=== PATIENT | male | born 1950 | race Caucasian/White ===

== ENCOUNTER → 2017-08-30 | Outpatient (CLI) | payer MEDICARE ==
[~2017-08-30] MED LIST: REGADENOSON 0.4 MG/5 ML SYRINGE IV ONE
--- NOTE | 2017-08-30 10:55 | NM ---
EXAMINATION TYPE: NM stress lexiscan cardiolite DATE OF EXAM: 08/30/2017 COMPARISON: NONE HISTORY: Abnormal EKG and chest pain TECHNIQUE: After the intravenous administration of 10.4 mCi Tc 99m Sestamibi - Cardiolite resting SP ECT images acquired 45 minutes post injection. The patient received 0.4mg Lexiscan, 26.7 mCi Tc 99m Sestamibi - Stress images obtained [address] injection FINDINGS: Review of stress and rest SPECT images demonstrates no distinct perfusion abnormality. Gated analysi s shows stress-induced reversible ischemia involving the apical and apical septal portion myocardium. With an estimated left ventricular ejection fraction of 60 %. Referring physician notified by teleph one. IMPRESSION: 1. Stress-induced reversible ischemia involving the apex of the myocardium 2. Ejection fraction of 60% A [place] level critical message alert has been initiated for Herb Reilly MD via the [employer] Critical Results System on 08/30/2017 10:53 AM. This message alert has been sent to Herb Reilly MD via the preferences provided by the clinician for the receipt of Radiology Critical Findings. Message ID [id number].
--- NOTE | 2017-08-30 14:02 | EST ---
EXERCISE STRESS AGE: 67 SEX: M HT: 75" WT: 238 PROTOCOL: Lexiscan Cardiolite Stress Test HEART RATE REST: 65 BLOOD PRESSURE REST: 174/77 MAXIMUM HEART RATE ACHIEVED: 84 MAXIMUM BLOOD PRESSURE: 174/77 85% MPHR: 128 100% MPHR: 151 INDICATIONS: Difficulty breathing, chest pain. CLINICAL INFORMATION: STRESS DATA: Pretesting physical examination showed a heart rate of 65, pressure is 174/77 mmHg. Baseline EKG showed sinus mechanism with RBBB. A 0.4 mg of Lexiscan was given to the patient per protocol. Max heart rate was 84 beats per minute and maximum pressure was 174/77 mmHg. Clinically, no chest discomfort reported and the EKG did not show any significant ST or T-wave abnormalities consistent with ischemia. CONCLUSION: 1. Nondiagnostic electrocardiogram stress testing in response to Lexiscan. 2. Please follow up on the Cardiolite portion on separate report from the Radiology Department. MMODL / IJN: [id number] /
== END | disposition home or self-care (01) ==
LOC: RADNMMAIN 07:56
PROVIDERS: ATTEND Internal Medicine
DX: R07.9 Chest pain, unspecified (principal); R94.31 Abnormal electrocardiogram [ECG] [EKG]
CPT/HCPCS: 93017; 78452; A9500

== ENCOUNTER 2017-09-10 07:44 | Day surgery (SDC) | payer MEDICARE ==
[2017-09-06 11:40] VITALS: BMI 29.6
[~2017-09-10 07:44] MED LIST changes: +ALPRAZolam 0.25 MG TAB PO PRN; +ALPRAZolam 0.5 MG TAB PO PRN; +ASPIRIN 325 MG TAB PO STA; +ATORVASTATIN 80 MG TAB PO STA; +NITROGLYCERIN SL TABS 0.4 MG TAB SUBLINGUAL PRN; -REGADENOSON 0.4 MG/5 ML SYRINGE IV ONE; +SODIUM CHLORIDE 0.9% 1,000 ML in EMPTY BAG 1 BAG IV ONE
[2017-09-10 08:55] LABS: Glucose,Whole Blood 221 mg/dL (75-99)
[2017-09-10] MEDS: INSULIN ASPART 100 UNIT/ML 1 ML 10 ML VIAL SQ SCH ×3 (09:01→21:09)
[2017-09-10 09:15] LABS: Basophils % (A) 1 %; Eosinophils # (A) 0.3 k/uL (0-0.7); Eosinophils % (A) 3 %; HCT 38.9 % (39.0-53.0); HGB 13.2 gm/dL (13.0-17.5); Lymphocytes # (A) 1.4 k/uL (1.0-4.8); Lymphocytes % (A) 17 %; MCH 31.3 pg (25.0-35.0); MCHC 33.9 g/dL (31.0-37.0); MCV 92.5 fL (80.0-100.0); Mean Platelet Volume 7.6; Monocytes # (A) 0.5 k/uL (0-1.0); Monocytes % (A) 6 %; Neutrophils # (A) 5.6 k/uL (1.3-7.7); Neutrophils % (A) 71 %; Platelet Count 236 k/uL (150-450); RBC 4.21 m/uL (4.30-5.90); RDW 12.5 % (11.5-15.5); WBC 7.8 k/uL (3.8-10.6)
[2017-09-10 09:21] LABS: Anion Gap 14 mmol/L; Blood Urea Nitrogen 18 mg/dL (9-20); Calcium 9.3 mg/dL (8.4-10.2); Carbon Dioxide 23 mmol/L (22-30); Chloride 105 mmol/L (98-107); Glucose 225 mg/dL (74-99); Potassium 4.8 mmol/L (3.5-5.1); Sodium 142 mmol/L (137-145)
[2017-09-10] MEDS ORDERED: VERAPAMIL 2.5 MG/ML 2 ML AMP ONE (09:54)
[2017-09-10] MEDS ORDERED: LIDOCAINE 2% INJ 20 MG/ML (20 ML MDV) ONE (09:54)
[2017-09-10] MEDS ORDERED: fentaNYL (PF) 50 MCG/ML 2 ML AMP ONE (10:12)
[2017-09-10] MEDS ORDERED: fentaNYL (PF) 50 MCG/ML 2 ML AMP IV ONE (10:13)
[2017-09-10] MEDS ORDERED: LIDOCAINE 2% INJ 20 MG/ML SQ ONE (10:17)
[2017-09-10] MEDS: VERAPAMIL SYRINGE (5 MG/10 ML) INTRAARTER ONE ×2 (10:19→10:46)
[2017-09-10] MEDS ORDERED: BIVALIRUDIN 250 MG in SODIUM CHLORIDE 0.9% 50 ML IV ONE (10:31)
[2017-09-10] MEDS ORDERED: BIVALIRUDIN BOLUS 250 MG/50 ML IV ONE (10:31)
[2017-09-10] MEDS ORDERED: TICAGRELOR 90 MG TAB ONE (10:37)
[2017-09-10] MEDS ORDERED: TICAGRELOR 90 MG TAB PO ONE (10:39)
[2017-09-10] MEDS: NITROGLYCERIN 1000MCG/10ML SYRINGE INTRACORON ONE ×2 (10:50→10:51)
[2017-09-10] MEDS ORDERED: IOPAMIDOL-370 50ML BTL INJ ONE (10:56)
[2017-09-10] MEDS ORDERED: IOPAMIDOL-370 125ML BTL INJ ONE (10:56)
[2017-09-10] MEDS ORDERED: NITROGLYCERIN 1000MCG/10ML SYRINGE INTRACORON ONE (11:01)
[2017-09-10] MEDS ORDERED: IOPAMIDOL-370 100ML BTL INJ ONE (11:16)
[2017-09-10] MEDS ORDERED: MAG HYDROX/AL HYDROX/SIMETH 30 ML CUP PO PRN (11:37)
[2017-09-10] MEDS ORDERED: RX INFO: IV CONTRAST WAS GIVEN 1 EACH MISC MISCELLANE PRN (11:37)
[2017-09-10] MEDS ORDERED: ATROPINE SULFATE 0.1 MG/ML 10ML SYRINGE IV PRN (11:37)
[2017-09-10] MEDS ORDERED: NITROGLYCERIN SL TABS 0.4 MG TAB SUBLINGUAL PRN (11:37)
[2017-09-10] MEDS ORDERED: SODIUM CHLORIDE 0.9% 1,000 ML IV SCH (11:45)
--- NOTE | 2017-09-10 11:52 | CC ---
CARDIAC CATHETERIZATION REPORT Mr. Vargas is a 67-year-old male with known history of diabetes, hypertension, who has been complaining of progressive symptoms of angina pectoris and dyspnea on exertion, underwent a myocardial perfusion imaging that revealed apical ischemia. In view of that, recommendation regarding cardiac catheterization. The procedures as well as risks and complication were discussed with the patient who is in full understanding and agreement. PROCEDURE: Patient was brought to the lab[employer] plant in a fasting state after receiving fentanyl and Benadryl and achieving moderate conscious sedated state. Using Xylocaine anesthesia and Seldinger technique, a 6-Guyanese sheath was introduced in the right radial artery. Selective right and left coronary angiography performed using 5-Guyanese 3 and half bend, right and left Monique catheters, multiple views of the coronary artery including hemiaxial views were obtained. Following that, a 5-Guyanese tight pigtail catheter was introduced into the left ventricle and a 30 degree BHATIA view of the left ventricle was obtained. Following that, the catheter was removed. Images were reviewed. FINDINGS: Left Main: This is a large-sized vessel trifurcation into left circumflex, left anterior descending artery and ramus intermedius. Left main coronary artery has no evidence of high-grade stenosis. Left Anterior Descending Artery: This vessel is totally occluded proximally with no significant antegrade flow. There are collaterals to the distal LAD with the retrograde fashion and the ipsilateral fashion as well as from the right PDA. Ramus Intermedius: This is a large-sized vessel reaching to the apical lateral wall that has no evidence of high-grade stenosis. Left Circumflex: This is a nondominant large vessel giving rise to a large obtuse marginal branch. The left circumflex as well as branches have no evidence of obstructive coronary disease. Right Coronary Artery: This is a large dominant vessel bifurcating distally to PDA and posterolateral segment and branches. The right coronary artery and its branches have no evidence of obstructive coronary disease. Left Ventriculogram: Left ventriculogram is performed in 30 degree BHATIA view and revealed a normal left ventricular size with mild anterior wall hypokinesis. The estimated ejection fraction of 50%. There was no significant mitral regurgitation. HEMODYNAMICS: There was no gradient across the aortic valve. The left ventricle end-diastolic pressure was 16-20 mmHg. CONCLUSION: 1. 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 2. Mildly impaired left ventricular systolic function. RECOMMENDATION: In view of finding anatomy, I have recommended proceeding with angioplasty and stenting of the proximal LAD. The procedures as well as risks and complication were discussed with the patient who was in full understanding and agreement. MMKEN / ANGEL: [id number] / ZAC
[2017-09-10] MEDS: glipiZIDE 5 MG TAB PO SCH ×2 (12:11→17:04)
--- NOTE | 2017-09-10 12:31 | PTCA ---
PERCUTANEOUSTRANS CORORONARY ANGIOGRAPHY Ms. Vargas is a 67-year-old male with known history of hypertension, hyperlipidemia, diabetes mellitus, who presented with progressive symptoms of angina pectoris, underwent a myocardial perfusion imaging that revealed apical wall ischemia, underwent cardiac catheterization, was found totally occluded proximal LAD. In view of that, recommendation was made regarding angioplasty and stenting. The procedure as well as the risks and the complications were discussed with the patient who is in full understanding and agreement. PROCEDURE: A 6-Yi EBU 3.75 guiding catheter introduced in the the system after cannulating the left main, a 0.014 balanced medium weight J-wire with Corsair catheter was introduced system and a total occlusion was crossed. A wire was positioned distally. The Corsair catheter was removed and a 2.25 x 12 mm Trek balloon was advanced and 2 inflation at maximum of 8 atmospheres were done. Following that, the balloon was was removed and a 2.5 x 28 mm Xience Alpine stent was deployed proximally, post dilated at 14 atmospheres. Following that, the balloon was removed and another 2.5 x 14 mm Xience Alpine stent was deployed distal to the first one and post dilated at 14 atmospheres. Following that, an inflation in the overlapping segment at 16 atmospheres was done. After the last inflation, after appropriate wait, the balloon and the guidewire were withdrawn back in the guiding catheter. Images were obtained and repeated. Those images reveal stable successful stenting. At that point, the guiding catheter, the balloon and the guidewire were removed. The sheath was removed. Hemostasis was obtained with deployment of a TR band. There was no immediate complication. Patient was returned to his room in stable condition. Of note, the patient received Angiomax per protocol as well as oral loading dose of Brilinta. He also received intra-arterial verapamil. He had no chest discomfort or significant EKG changes with the inflations. RESULTS: Successful stenting of a totally occluded proximal left anterior descending artery with reduction in stenosis from 100% to 0%. RECOMMENDATION: Patient will be continued on aspirin, Brilinta, beta blockers, DONALD inhibitor, statin. The importance of dual antiplatelet treatment were discussed with the patient and his family who are in full understanding and agreement. MMODL / IJN: [id number] / ZAC
--- NOTE | 2017-09-10 12:37 | LTR ---
September 10, 2017 Re: Jeremy Vargas Dear Dr. Reilly: I had the opportunity to perform cardiac catheterization and coronary angioplasty and stenting on Mr. Vargas at [facility] and a full copy of the procedure note will be forwarded to you. In brief, he was found to have a totally occluded proximal left anterior descending artery and underwent successful stenting of that vessel using 2 drug-eluting stents. I am hopeful that this procedure will stabilize his status and I thank you again for allowing me the opportunity to participate in his care. Please feel free to call for any questions. Sincerely yours, MD HOLLI BradyL / TONYN: [id number] /
[2017-09-10 16:40] LABS: Glucose,Whole Blood 284 mg/dL (75-99)
[2017-09-10] MEDS: CARVEDILOL 12.5 MG TAB PO SCH (17:04)
[2017-09-10] MEDS: TICAGRELOR 90 MG TAB PO SCH (19:34)
[2017-09-10 20:58] LABS: Glucose,Whole Blood 236 mg/dL (75-99)
[2017-09-10] MEDS ORDERED: ATORVASTATIN 80 MG TAB PO SCH (21:00)
[2017-09-10] MEDS ORDERED: ZOLPIDEM 5 MG TAB PO PRN (21:00)
[2017-09-11 05:54] LABS: Glucose,Whole Blood 209 mg/dL (75-99)
[2017-09-11] MEDS: CARVEDILOL 12.5 MG TAB PO SCH (06:38)
[2017-09-11] MEDS: glipiZIDE 5 MG TAB PO SCH (06:38)
[2017-09-11] MEDS: INSULIN ASPART 100 UNIT/ML 1 ML 10 ML VIAL SQ SCH (06:38)
[2017-09-11 06:46] LABS: Calcium 9.3 mg/dL (8.4-10.2); Potassium 4.6 mmol/L (3.5-5.1)
[2017-09-11 08:20] VITALS: BP 128/61; PULSE 52; RESP 18; TEMP 96.4
[2017-09-11] MEDS: TICAGRELOR 90 MG TAB PO SCH (08:21)
--- NOTE | 2017-09-11 08:29 | PN ---
PROGRESS NOTE Mr. Vargas is a 67-year-old male with known history of hypertension, hyperlipidemia, diabetes mellitus, who presented with symptoms of angina pectoris and abnormal myocardial perfusion imaging was found to have a totally occluded proximal LAD, underwent stenting of that vessel. He is doing well this morning. His breathing has been stable. He is denying any dizziness. No palpitation. He denies any nausea. He has been ambulating. He continued to be on aspirin once a day, Lipitor 80 mg daily, Coreg 12.5 mg twice a day, glipizide 5 mg 3 times a day, Tradjenta 5 mg daily, losartan 100 mg daily, and Brilinta 90 mg twice a day. PHYSICAL EXAMINATION: Blood pressure 106/60 with the heart rate in the 50s. LUNGS: Clear. HEART: Regular rate and rhythm. S1, S2. No S3. No rub. ABDOMEN: Soft, nontender. EXTREMITIES: No edema. Right radial pulse is intact. EKG no acute changes. LAB DATA: Lab data revealed BUN and creatinine 14 and 1.0. Potassium 4.6. IMPRESSION: 1. Status post stenting of a totally occluded left anterior descending artery. 2. Hypertension. 3. Hyperlipidemia. 4. Diabetes mellitus. RECOMMENDATION: Patient will be discharged home today and followed as an outpatient. MMODL / IJN: [id number] /
[2017-09-11] MEDS ORDERED: LINAGLIPTIN 5 MG TABLET PO SCH (09:00)
[2017-09-11] MEDS ORDERED: CHOLECALCIFEROL 1,000 UNIT TAB PO SCH (09:00)
[2017-09-11] MEDS ORDERED: ASPIRIN 81 MG PO SCH (09:00)
[2017-09-11] MEDS ORDERED: LOSARTAN 50 MG TAB PO SCH (09:00)
== END 2017-09-11 09:32 | disposition home or self-care (01) ==
LOC: CATHCVL 07:44 → 6SEL 11:10 → CATHCVL 09-11 09:32
PROVIDERS: ATTEND Internal Medicine Interventional Cardiology
DX: I25.110 Atherosclerotic heart disease of native coronary artery with unstable angina pectoris (principal); I25.82 Chronic total occlusion of coronary artery; R00.1 Bradycardia, unspecified; I45.10 Unspecified right bundle-branch block; R94.39 Abnormal result of other cardiovascular function study; I10 Essential (primary) hypertension; E78.2 Mixed hyperlipidemia; E11.9 Type 2 diabetes mellitus without complications; Z82.49 Family history of ischemic heart disease and other diseases of the circulatory system; Z79.84 Long term (current) use of oral hypoglycemic drugs; Z79.82 Long term (current) use of aspirin; Z79.899 Other long term (current) drug therapy
CPT/HCPCS: 93458; 80048 ×2; 85025; C9600; C1769 ×2; C1887 ×2; C1894; C1725; C1874; J2001; J3010; J0583; Q9967 ×3

== ENCOUNTER 2021-05-04 15:11 | Emergency (ER) | payer MEDICARE ==
[2021-05-04 15:34] VITALS: RESP 18; TEMP 98.4
--- NOTE | 2021-05-04 16:14 | ED ---
URI HPI - General Chief Complaint: Upper Respiratory Infection Stated Complaint: Covid+,wants antibody Time Seen by Provider: 05/04/21 15:51 Source: patient, RN notes reviewed Mode of arrival: ambulatory Limitations: no limitations - History of Present Illness Initial Comments: This is a 71-year-old male presents emergency Department chief complaint of C OVID-19. Patient states to suppository today is PCPs. Symptoms have been present for last several days. Patient states she's had fevers chills cough congestion generalized weakness no exertional dyspnea no resting dyspnea now. Patient's had no GI symptoms no change in taste and smell. - Related Data Home Medications Medication Instructions Recorded Confirmed Aspirin [Adult Low Dose Aspirin EC] 81 mg PO QAM 09/06/17 09/10/17 Cholecalciferol [Vitamin D3 (25 2,000 unit PO DAILY 09/06/17 09/10/17 Mcg = 1000 Iu)] Losartan Potassium 100 mg PO QAM 09/06/17 09/10/17 carvediloL [Coreg*] 12.5 mg PO BID 09/06/17 09/10/17 glipiZIDE [Glucotrol] 5 mg PO TID-W/MEALS 09/06/17 09/10/17 metFORMIN HCL [Glucophage] 1,000 mg PO BID 09/06/17 09/10/17 sitaGLIPtin [Januvia] 100 mg PO DAILY 09/06/17 09/10/17 Previous Rx's Medication Instructions Recorded Atorvastatin [Lipitor] 80 mg PO HS #90 tab 09/11/17 Nitroglycerin Sl Tabs [Nitrostat] 0.4 mg SUBLINGUAL Q5M PRN #25 tab 09/11/17 Ticagrelor [Brilinta] 90 mg PO BID #180 tab 09/11/17 Allergies Allergy/AdvReac Type Severity Reaction Status Date / Time No Known Allergies Allergy Verified 05/04/21 15:34 Review of Systems ROS Statement: Those systems with pertinent positive or pertinent negative responses have been documented in the HPI. ROS Other: All systems not noted in ROS Statement are negative. Past Medical History Past Medical History: Coronary Artery Disease (CAD), Diabetes Mellitus, Hyperlipidemia, Hypertension Additional Past Medical History / Comment(s): SOB History of Any Multi-Drug Resistant Organisms: None Reported Past Surgical History: Heart Catheterization With Stent, Orthopedic Surgery, Tonsillectomy Additional Past Surgical History / Comment(s): LEFT KNEE ARTHROSCOPY Past Anesthesia/Blood Transfusion Reactions: No Reported Reaction Past Psychological History: No Psychological Hx Reported Smoking Status: Never smoker Past Alcohol Use History: Occasional Past Drug Use History: None Reported - Past Family History Mother Family Medical History: No Reported History General Exam Limitations: no limitations General appearance: alert, in no apparent distress Head exam: Present: atraumatic, normocephalic, normal inspection Eye exam: Present: normal appearance, PERRL, EOMI. Absent: scleral icterus, conjunctival injection, periorbital swelling ENT exam: Present: normal exam, mucous membranes moist Neck exam: Present: normal inspection. Absent: tenderness, meningismus, lymphadenopathy Respiratory exam: Present: normal lung sounds bilaterally. Absent: respiratory distress, wheezes, rales, rhonchi, stridor Cardiovascular Exam: Present: regular rate, normal rhythm, normal heart sounds. Absent: systolic murmur, diastolic murmur, rubs, gallop, clicks Course Vital Signs 05/04/21 15:31 Temperature 98.4 F Pulse Rate 75 Respiratory 18 Rate Blood Pressure 109/67 O2 Sat by Pulse 96 Oximetry Medical Decision Making - Medical Decision Making Patient did receive monoclonal antibodies will be discharged in stable condition return parameters were discussed. Disposition Clinical Impression: COVID-19 Disposition: HOME SELF-CARE Condition: Stable Instructions (If sedation given, give patient instructions): Coronavirus Disease 2019 (COVID-19) Additional Instructions: Please return to the Emergency Department if symptoms worsen or any other concerns. Is patient prescribed a controlled substance at d/c from ED?: No Referrals: Herb Reilly MD [Primary Care Provider] - 1-2 days Time of Disposition: 16:13
[2021-05-04] MEDS ORDERED: CASIRIVIMAB (REGN10933) (EUA) 600 MG, IMDEVIMAB (REGN10987) (EUA) 600 MG in SODIUM CHLO... IVPB ONE (16:30)
[2021-05-04 16:51] VITALS: PULSE 69
[2021-05-04] MEDS ORDERED: SODIUM CHLORIDE 0.9% 50 ML IVPB ONE (17:00)
[2021-05-04 18:08] VITALS: BP 155/78
== END 2021-05-04 18:08 | disposition home or self-care (01) ==
LOC: EC 15:11
DX: U07.1 COVID-19 (principal); I25.10 Atherosclerotic heart disease of native coronary artery without angina pectoris; E11.9 Type 2 diabetes mellitus without complications; E78.5 Hyperlipidemia, unspecified; I10 Essential (primary) hypertension; Z79.82 Long term (current) use of aspirin; Z79.84 Long term (current) use of oral hypoglycemic drugs
CPT/HCPCS: 99284; Q0244